=== PATIENT | female | born 1960 ===

== ENCOUNTER 2022-10-28 10:00 | Outpatient (RCR) | payer OTHER, SELFPAY ==
[2022-10-19 12:03] VITALS: BP 104/62; PULSE 76; TEMP 37.6
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
--- NOTE | 2022-10-19 14:44 | PC.ADMIT ---
Patient is a 62 year old female who was referred to [facility] by [facility] inpatient behavioral health unit d/t catatonia. Patient has a dx of Schizophrenia. She reportedly was hospitalized medically prior to inpatient unit and treated for catatonia with IV Ativan. See discharge paperwork from [facility] for more information. 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 Patient concerned about being evicted as her landlord told her she wanted Jenna to move out of her home. Patient has contacted legal aide. Patient reports a history of using cannabis edibles nightly and drinking 1-2 glasses of wine daily. Stated the last time she use both substances was 4 months ago and does not plan on using moving forward. Patient stated prior to hospitalization she was not sleeping at all and was experiencing AH. Patient is alert and oriented x4. Presented with depressed mood and affect. Denied SI or thoughts to harm herself. Denied AH, VH, HI or paranoid thoughts. Thought process appears clear and goal oriented. Wants continued stabilization of her mental health as she does not want to go back into the hospital. Medications reconciled with patient and D/C paperwork from [facility]. Francisca the prescriber met with patient and is lowering her Remeron d/t complaints of sedation.
[2022-10-20 12:26] LABS: Amphetamine Screen Urine Not Detected (Not Detect); Barbiturates, Urine Not Detected (Not Detect); Benzodiazepines Screen Urine Not Detected (Not Detect); Cannabinoid Screen Urine Not Detected (Not Detect); Cocaine Screen Urine Not Detected (Not Detect); Fentanyl, urine Not Detected (Not Detect); Opiate Screen Urine Not Detected (Not Detect); Phencyclidine Screen Urine Not Detected (Not Detect)
--- NOTE | 2022-10-22 13:35 | PC.NURSE ---
Met with patient again. She stated she is feeling better. I asked her if anyone could pick her up and give her a ride home. She stated there was no one who could drive her home and she felt fine to drive and wants to drive home. Stated she lives 5 minutes away. Stated she has been dealing with this for a long time. She stated she gets warning prior to psychogenic seizure where her head feels like there is a heavy weight on it and feeling disconnected, and her hand will start to shake. She stated she feels like she is having a panic attack. I asked her to call us when she gets home. [facility] staff are aware including Refrigeration Tech Francisca Sellers NP, Debra Ball, and Silvia Dowd
--- NOTE | 2022-10-23 15:41 | HO.PHPIOP ---
Case opened in treatment team
--- NOTE | 2022-10-28 10:19 | HO.PHPPROGNO ---
Subjective Subjective Date of Service: 10/28/22 Reason For Visit: schizoaffective disorder Medical Problems Affecting Mental Status: No Interim History: Reports doing well. Feels stable for discharge from [facility] at this time. Taking medications as prescribed. No SI, no safety concerns. Affect stable Returning to work this evening, looks forward to this. Medication Compliance: Yes Side effects from medications: No Attending Groups: Yes Review of Systems Acute medical concerns: No Medical Review of Systems: unchanged Review of Systems Review of Systems Yes all other systems are reviewed and are negative Constitutional: Reports no additional constitutional complaints Mental Status Exam Mental Status Exam Narrative: NAD Patient Appearance: Appropriate Patient Orientation: Person, Place, Time and Situation Level of Consciousness: Awake, Appropriate and Alert Patient Behavior: Appropriate, Cooperative and Good Eye Contact Mood Description: Appropriate Affect Description: Appropriate Patient Cognition Impaired: No Ability to Follow Directions: Good Speech Pattern: Clear and Appropriate Memory Description: Intact Hallucinations: None Delusions: Not Present Thought Process: Intact Thought Content: positive for Intact Judgement: Good Assessment & Plan Assessment & Plan (1) Schizoaffective disorder: Status: Acute Code(s): F25.9 - Schizoaffective disorder, unspecified Assessment and Plan: Patient fully engageable during encounter, appropriately groomed and dressed. Mood stable, affect congruent. Reports she has been taking medications as prescribed, no concerns. Has a lead on a place to live, is hopeful for this. Feels stable for discharge from [facility] at this time. Denies any SI/HI, no safety concerns. Taking medications as prescribed. No SI, no safety concerns. Returning to work this evening, looks forward to this. Has changed her schedule, so that she Shonna a bur to keep a regular sleep/wake cycle, in order to help prevent relapse of symptoms. Reviewed discharge paperwork with patient, questions answered to her satisfaction. No concerns. Plan 1. Patient appears stable for discharge from [facility] at this time. 2. Patient to follow-up with outpatient providers going forward. Patient educated on: diagnosis, medication risk/benefits and therapeutic strategies Informed Consent: understands Reason for contiued partial hosp. stay Substantial Risk for: stable for discharge Certification I certify that partial hospital treatment is medically necessary due to the symptoms and problems resulting from the patient's mental illness and the failure to treat the patient at the partial hospital level of care would likely result in the patient requiring inpatient psychiatric care which could not be prevented at a less intensive level of care. Total time managing care of this patient today __20__ minutes. Discharge Plan Discharge Attending provider: Kwabena Jones Medications: No Action thiamine HCl (vitamin B1) 100 mg Tablet 100 mg PO DAILY lorazepam 1 mg Tablet 1 mg PO TID paliperidone palmitate 117 mg/0.75 mL Syringe 117 mg IM QMONTH apixaban 5 mg Tablet 5 mg PO BID 19 29 mg iron- 1 mg tablet,chewable 1 tab PO DAILY mirtazapine 15 mg Tablet 15 mg PO BEDTIME Label Comments: Patient reports her provider increased Mirtazapine to 15 mg Q HS on medication update form. Stand Alone Forms: Patient Portal Discharge page Patient Education: Schizoaffective Disorder (DC)
--- NOTE | 2022-10-29 08:21 | HO.PHPIOP ---
A message was left with Wilma Murdock [employer] re clients dc from PHP
== END 2022-10-28 23:59 | disposition home or self-care (01) ==
LOC: HO.PHPA 10:00
PROVIDERS: Visit Provider Psychiatry & Neurology Psychiatry
DX: F25.9 Schizoaffective disorder, unspecified (principal); Z79.899 Other long term (current) drug therapy
CPT/HCPCS: 80307; 90791; 90853